=== PATIENT | female | born 1965 | race Caucasian/White ===

== ENCOUNTER 2016-11-22 09:56 | Emergency (ER) | payer BC ==
[~2016-11-22] VITALS: Ht 160 cm; Wt 63.5 kg
[2016-11-22 09:57] VITALS: BP 166/92; PULSE 78; RESP 20; TEMP 98.5; O2SAT 100
--- NOTE | 2016-11-22 11:17 | PD ---
HPI Chief Complaint: Back/ Neck Pain or Injury Time Seen by Provider: 11:16 Travel History International Travel<30 days: No Contact w/Intl Traveler<30days: No Traveled to known affect area: No History of Present Illness HPI 51-year-old male presents to the emergency Department with complaint of left upper back pain for the past few weeks. She saw pain management and they gave her a Medrol Dosepak which she said took away the pain. A few days ago she was startled by something and the pain came back. She is still taking the Medrol Dosepak at this time and today is her last day. She says the pain is a pinching sensation and sense shocking pulsations down her left arm. She denies chest pain, shortness of breath, heart palpitations. Pain is reproducible on palpation. Has tried taking ibuprofen with minimal relief of pain. She has not tried any other treatments to alleviate her symptoms. She says she is going to follow-up with pain management when she gets back home. Denies paresthesias, loss of sensation, decreased range of motion, decreased strength to bilateral upper extremities. Denies IV drug use. Denies cancer. Denies fever, vomiting. Allergies to codeine and penicillin. Has no other medical complaints. No other modifying factors or associated signs and symptoms. [facility] Social History Tobacco Use: No Allergies-Medications (Allergen,Severity, Reaction): Coded Allergies: Codeine (Verified Allergy, Severe, Nausea/Vomiting, 11/22/16) Penicillin (Verified Allergy, Unknown, 11/22/16) Reported Meds & Prescriptions Reported Meds & Active Scripts Active Ibuprofen 800 Mg Tab 800 Mg PO Q6HR PRN Robaxin (Methocarbamol) 500 Mg Tab 500 Mg PO QID PRN Review of Systems Except as stated in HPI: all other systems reviewed are Neg Physical Exam Narrative GENERAL: Well-nourished, well-developed female patient, in no acute distress; afebrile, nontoxic-appearing SKIN: Warm and dry. HEAD: Atraumatic. Normocephalic. EYES: Pupils equal and round. No scleral icterus. No injection or drainage. ENT: Mucosa pink and moist. Airway patent. NECK: Trachea midline. CARDIOVASCULAR: Regular rate and rhythm. No murmur appreciated. RESPIRATORY: No accessory muscle use. Clear to auscultation. Breath sounds equal bilaterally. GASTROINTESTINAL: Flat. MUSCULOSKELETAL: Bilateral upper extremities are supple and non-tense and with sensory intact, full strength, and full range of motion. No obvious deformities. No clubbing. No cyanosis. No edema. BACK: No midline point tenderness on palpation of the thoracic spine. Reproducible tenderness to the left upper back over the musculature of the trapezius muscle. NEUROLOGICAL: Awake and alert. Oriented 3. No obvious cranial nerve deficits. Motor grossly within normal limits. Normal speech. PSYCHIATRIC: Appropriate mood and affect; insight and judgment normal. Data Data Last Documented VS Vital Signs Date Time Temp Pulse Resp B/P Pulse Ox O2 Delivery O2 Flow Rate FiO2 11/22/16 11:28 18 11/22/16 09:57 98.5 78 166/92 100 Room Air Orders Ketorolac Inj (Toradol Inj) (11/22/16 11:30) Orphenadrine Inj (Norflex Inj) (11/22/16 11:30) MDM Medical Decision Making Medical Screen Exam Complete: Yes Emergency Medical Condition: Yes Medical Record Reviewed: Yes Differential Diagnosis Nerve impingement, muscle strain of back, muscle spasm Narrative Course 51-year-old female with muscle strain and/or muscle spasm of left upper back. She has seen pain management and was given a Medrol Dosepak which helped. The pain is reproducible to the left upper back over the trapezius muscle. He does radiate down her left arm at times. She denies chest pain, shortness of breath , heart palpitations. Patient is currently taking her Medrol dosepak and is finishing it today. Toradol and Norflex administered in the ER. Ibuprofen and Robaxin prescribed for home. Patient to follow up with pain management as needed. Patient verbalizes understanding and agreement with treatment plan. Patient is medically cleared and stable for discharge. Discussed reasons to return to the emergency department. Instructed patient to follow up with primary care provider. Patient agrees with treatment plan. The patients vital signs are stable and the patient is stable for outpatient follow-up and treatment. Patient discharged home, stable and in no acute distress. Diagnosis Primary Impression: Muscle strain of left upper back Qualified Code: S29.012A - Muscle strain of left upper back, initial encounter Referrals: Pain Management Primary Care Physician Patient Instructions: General Instructions, Muscle Spasm (ED), Muscle Strain ( ED) Additional Instructions: Tylenol or ibuprofen as directed and as needed to reduce pain Robaxin as prescribed for muscle spasms Get adequate rest Ice and/or heating pad to affected area to reduce pain Avoid aggravating activity; increase activity as tolerated Follow-up with primary care provider Return to the emergency department immediately with worsening symptoms Med/Other Pt SpecificInfo: Prescription(s) given Scripts Ibuprofen 800 Mg Far320 Mg PO Q6HR PRN (PAIN) #30 TAB Ref 0 Prov:Ashley Hooks 11/22/16 Methocarbamol (Robaxin)500 Mg Hnx282 Mg PO QID PRN (MUSCLE SPASM) #30 TAB Ref 0 Prov:Ashley Hooks 11/22/16 Disposition: 01 DISCHARGE HOME Condition: Stable Ashley Hooks November 22, 2016 11:17
[2016-11-22] MEDS ORDERED: IBUP800T23 PO (11:19)
[2016-11-22] MEDS ORDERED: ROBA500T PO (11:19)
[2016-11-22] MEDS ORDERED: KETOROLAC TROMETHAMINE 60 MG/2 ML (IM) VIAL IM ONE (11:30)
[2016-11-22] MEDS ORDERED: ORPHENADRINE INJ 60 MG/2 ML AMP IM ONE (11:30)
== END 2016-11-22 11:55 | disposition home or self-care (01) ==
LOC: NEPK 09:56
DX: S29.012A Strain of muscle and tendon of back wall of thorax, initial encounter (principal); X58.XXXA Exposure to other specified factors, initial encounter; Y93.9 Activity, unspecified; Y92.9 Unspecified place or not applicable; Y99.8 Other external cause status
CPT/HCPCS: 96372; 99283; J1885; J2360